=== PATIENT | male | born 1955 | race Caucasian/White ===

== ENCOUNTER 2020-09-01 11:03 | Inpatient (IN) | payer BC, MEDICAID ==
[~2020-09-01] VITALS: Ht 188 cm; Wt 97.5 kg
[2020-09-01] MEDS ORDERED: NITROGLYCERIN 0.4 MG SL TAB SL ONE (11:15)
[2020-09-01] MEDS ORDERED: ASPirin 81 mg TAB PO ONE ×2 (11:15→13:00)
[2020-09-01 11:44] LABS: Basophils # (auto) 0 10 ^3/uL (0-0.2); Basophils % (auto) 0.6 % (0.0-2.0); Eosinophils # (auto) 0.2 10 ^3/uL (0-0.8); Eosinophils % (auto) 3.2 % (0.0-7.0); Hematocrit 41.1 % (41.0-53.0); Hemoglobin 13.9 g/dL (13.5-17.5); Lymphocytes # (auto) 0.9 10 ^3/uL (0.4-5.4); Lymphocytes % (auto) 14.4 % (10.0-50.0); Mean Corpuscular Hemoglobin 31.8 pg (28.0-32.0); Mean Corpuscular Hgb Conc. 33.7 g/dL (32.0-36.0); Mean Corpuscular Volume 94.1 fL (80.0-100.0); Monocytes # (auto) 0.8 10 ^3/uL (0-1.3); Monocytes % (auto) 13.3 % (0.0-12.0); Neutrophils # (auto) 4.2 10 ^3/uL (1.6-8.6); Neutrophils % (auto) 68.5 % (37.0-80.0); Nucleated Red Blood Cells % 0.1 %; Platelet Count (auto) 239 10^3/uL (140-450); Red Blood Cells 4.37 10^6/uL (4.5-5.90); White Blood Cell 6.1 10^3/uL (4.4-10.8)
[2020-09-01 12:10] LABS: INR 0.92 (0.9-1.15); Partial Thromboplastin Time 27.2 sec (23.0-31.2)
[2020-09-01 12:28] LABS: Albumin 3.6 g/dL (3.4-5.0); Anion Gap 5 (5-15); Blood Urea Nitrogen 34 mg/dL (7-18); Calcium 9.3 mg/dL (8.5-10.1); Carbon Dioxide 25 mmol/L (21-32); Chloride 108 mmol/L (98-107); Glucose 104 mg/dL (74-106); Sodium 138 mmol/L (136-145)
[2020-09-01] MEDS ORDERED: ONDANSETRON HCL 4 MG/2 ML VIAL IV PRN (12:45)
[2020-09-01] MEDS ORDERED: MORPHINE SULF INJ 2 MG/ML SYRINGE 1ML IV PRN (12:45)
[2020-09-01] MEDS ORDERED: MORPHINE SULFATE 4 MG/ML SYR/VIAL IV PRN (12:45)
[2020-09-01] MEDS ORDERED: ZOLPIDEM TARTRATE 5 MG TAB PO PRN (12:45)
[2020-09-01] MEDS ORDERED: LORazepam 0.5 MG TAB PO PRN (12:45)
[2020-09-01] MEDS ORDERED: NITROGLYCERIN 0.4 MG SL TAB SL PRN (12:45)
[2020-09-01 12:46] LABS: Alanine Aminotransferase 34 U/L (16-61); Alkaline Phosphatase 95 U/L (45-117); Aspartate Aminotransferase 21 U/L (15-37); BUN/Creatinine Ratio 34.7; Bilirubin, Total 0.4 mg/dL (0.2-1.0); GFR African American 99 mL/min; GFR Non-African American 82 mL/min
[2020-09-01] MEDS ORDERED: METOPROLOL TARTRATE 25 MG TAB PO ONE (13:00)
[2020-09-01] MEDS ORDERED: LISINOPRIL 5 MG TAB PO ONE (13:00)
[2020-09-01] MEDS ORDERED: CLOPIDOGREL BISULFATE 75 MG TAB PO ONE (13:00)
[2020-09-01] MEDS ORDERED: ENOXAPARIN SOD 100 MG/1 ML SYRINGE SC ONE (13:00)
[2020-09-01] MEDS: SODIUM CHLORIDE 0.9% 1,000 ML IV SCH (16:36)
[2020-09-01] MEDS ORDERED: METO25TA5 PO (17:24)
[2020-09-01] MEDS ORDERED: RIVA10TA PO (17:24)
[2020-09-01] MEDS ORDERED: PRAV20TA3 PO (17:24)
[2020-09-01] MEDS ORDERED: FURO40TA4 PO (17:24)
[2020-09-01] MEDS ORDERED: DIGO0.12 PO (17:24)
[2020-09-01] MEDS ORDERED: SOTA80TA PO (17:24)
[2020-09-01] MEDS ORDERED: MAGN400T40 PO (17:27)
[2020-09-01] MEDS ORDERED: POTA1TAB64 PO (17:27)
[2020-09-01 17:40] LABS: Urine Bacteria FEW /hpf (None Seen); Urine Blood Negative /uL (Negative); Urine Mucus FEW (None Seen); Urine Specific Gravity 1.024 (1.001-1.035); Urine WBC 18 /hpf (0 - 3)
[2020-09-01] MEDS: ATORVASTATIN 20 MG TAB PO SCH (22:00)
[2020-09-01] MEDS: ENOXAPARIN SOD 100 MG/1 ML SYRINGE SC SCH (22:00)
[2020-09-01] MEDS: METOPROLOL TARTRATE 25 MG TAB PO SCH (22:01)
[2020-09-02] MEDS: SODIUM CHLORIDE 0.9% 1,000 ML IV SCH (02:05)
[2020-09-02 06:20] LABS: Hemoglobin 12.8 g/dL (13.5-17.5); Mean Corpuscular Hemoglobin 31.9 pg (28.0-32.0); Mean Corpuscular Hgb Conc. 33.7 g/dL (32.0-36.0); Mean Corpuscular Volume 94.6 fL (80.0-100.0); Platelet Count (auto) 199 10^3/uL (140-450); Red Blood Cells 4.02 10^6/uL (4.5-5.90); Red Cell Distribution Width 13.1 % (11.8-14.3); White Blood Cell 4.7 10^3/uL (4.4-10.8)
[2020-09-02 06:29] LABS: Calcium 8.7 mg/dL (8.5-10.1); Potassium 3.9 mmol/L (3.5-5.1)
[2020-09-02 07:03] LABS: Band Neutrophils % (manual) 0; Basophils % (manual) 0 (0.0-2.0); Blast Cells 0; Metamyelocytes % 0; Myelocytes % 0; Promyelocytes % 0; Reactive Lymphocytes 0
[2020-09-02 08:00] VITALS: BP 109/74
[2020-09-02 08:46] LABS: Eosinophils % (manual) 3 (0-7); Lymphocytes % (manual) 27 (10.0-50.0); Monocytes % (manual) 18 (0-12)
[2020-09-02 09:00] VITALS: BP 109/74
[2020-09-02] MEDS ORDERED: ASPirin 81 mg TAB PO SCH (10:00)
[2020-09-02] MEDS ORDERED: CLOPIDOGREL BISULFATE 75 MG TAB PO SCH (10:00)
[2020-09-02] MEDS ORDERED: HEPARIN SODIUM (PORCINE) 5000 UNITS/ML 1ML VIAL ONE (10:18)
[2020-09-02] MEDS ORDERED: ANGIOMAX 250 MG VIAL IV ONE (10:18)
[2020-09-02] MEDS ORDERED: VERAPAMIL 2.5MG/ML INJ 2ML VIAL IV ONE (10:18)
[2020-09-02] MEDS ORDERED: fentaNYL CITRATE 100 MCG/2 ML VL ONE (10:18)
[2020-09-02] MEDS ORDERED: LIDOCAINE 2%HCL (LOCAL ANESTH.) INJ 20ML MDV ONE (10:19)
[2020-09-02] MEDS ORDERED: SODIUM CHL 0.9% 0 ML ONE (10:19)
[2020-09-02] MEDS ORDERED: MIDAZOLAM HCL 1MG/1ML-2 ML VIAL ONE (10:20)
[2020-09-02] MEDS ORDERED: cefTRIAXone 1GM/50ML D5W 50 ML IV ONE (11:45)
[2020-09-02 13:00] VITALS: BP 96/63
[2020-09-02] MEDS: DOCUSATE SOD 100 MG CAP PO SCH (13:22)
[2020-09-02] MEDS: METOPROLOL TARTRATE 25 MG TAB PO SCH ×2 (13:22→21:47)
[2020-09-02] MEDS: LISINOPRIL 5 MG TAB PO SCH (13:22)
[2020-09-02] MEDS: ENOXAPARIN SOD 100 MG/1 ML SYRINGE SC SCH ×2 (13:23→21:47)
[2020-09-02] MEDS: SODIUM CHLOR 0.9% PF (SALINE LOCK) 10ML VIAL/SYR IV SCH ×2 (13:30→21:47)
[2020-09-02] MEDS: ACETAMINOPHEN 325 MG TAB PO PRN ×2 (14:39→20:34)
[2020-09-02 16:51] VITALS: BP 107/67
[2020-09-02] MEDS: ATORVASTATIN 20 MG TAB PO SCH (21:47)
[2020-09-02 22:00] VITALS: BP 112/47
[2020-09-03] MEDS: methIMAzole 5 MG TAB PO SCH ×2 (01:22→13:53)
[2020-09-03 05:00] VITALS: BP 93/59
[2020-09-03 06:19] LABS: Hematocrit 37.3 % (41.0-53.0); Hemoglobin 12.5 g/dL (13.5-17.5); Mean Corpuscular Hemoglobin 31.8 pg (28.0-32.0); Mean Corpuscular Hgb Conc. 33.5 g/dL (32.0-36.0); Platelet Count (auto) 200 10^3/uL (140-450); Red Blood Cells 3.92 10^6/uL (4.5-5.90); Red Cell Distribution Width 12.9 % (11.8-14.3); White Blood Cell 4.2 10^3/uL (4.4-10.8)
[2020-09-03] MEDS: SODIUM CHLOR 0.9% PF (SALINE LOCK) 10ML VIAL/SYR IV SCH ×3 (06:29→21:36)
[2020-09-03 06:50] LABS: Band Neutrophils % (manual) 0; Basophils % (manual) 0 (0.0-2.0); Blast Cells 0; Promyelocytes % 0; Reactive Lymphocytes 0
[2020-09-03 06:57] LABS: Potassium 4.2 mmol/L (3.5-5.1)
[2020-09-03 07:12] LABS: BUN/Creatinine Ratio 26.3; Calcium 8.9 mg/dL (8.5-10.1)
[2020-09-03 08:00] VITALS: BP 97/53
[2020-09-03] MEDS: ENOXAPARIN SOD 100 MG/1 ML SYRINGE SC SCH (08:59)
[2020-09-03 09:00] VITALS: BP 97/53
[2020-09-03] MEDS ORDERED: SODIUM CHLORIDE 0.9% 1,000 ML IV SCH (09:30)
[2020-09-03] MEDS: LISINOPRIL 5 MG TAB PO SCH (09:46)
[2020-09-03] MEDS: DOCUSATE SOD 100 MG CAP PO SCH (09:46)
[2020-09-03] MEDS: cefTRIAXone 1GM/50ML D5W 50 ML IV SCH (09:46)
[2020-09-03] MEDS: METOPROLOL TARTRATE 25 MG TAB PO SCH ×2 (09:47→23:54)
[2020-09-03] MEDS ORDERED: ENOXAPARIN SOD 100 MG/1 ML SYRINGE SC SCH (10:00)
[2020-09-03 10:26] LABS: INR 0.98 (0.9-1.15); Partial Thromboplastin Time 31.3 sec (23.0-31.2)
[2020-09-03] MEDS ORDERED: SODIUM CHLORIDE 0.9% 1,000 ML IV ONE (11:15)
[2020-09-03] MEDS ORDERED: methIMAzole 5 MG TAB PO ONE (11:15)
[2020-09-03 13:00] VITALS: BP 105/64
[2020-09-03 13:17] LABS: Eosinophils % (manual) 6 (0-7); Lymphocytes % (manual) 19 (10.0-50.0); Metamyelocytes % 1; Monocytes % (manual) 13 (0-12); Myelocytes % 1
[2020-09-03] MEDS: ACETAMINOPHEN 325 MG TAB PO PRN (13:58)
[2020-09-03 16:41] VITALS: BP 95/65
[2020-09-03 18:20] LABS: Basophils # (auto) 0 10 ^3/uL (0-0.2); Basophils % (auto) 0.5 % (0.0-2.0); Eosinophils # (auto) 0.2 10 ^3/uL (0-0.8); Eosinophils % (auto) 2.9 % (0.0-7.0); Hematocrit 37.2 % (41.0-53.0); Hemoglobin 12.5 g/dL (13.5-17.5); Lymphocytes % (auto) 18.2 % (10.0-50.0); Mean Corpuscular Hemoglobin 31.9 pg (28.0-32.0); Mean Corpuscular Hgb Conc. 33.7 g/dL (32.0-36.0); Mean Corpuscular Volume 94.7 fL (80.0-100.0); Monocytes # (auto) 0.9 10 ^3/uL (0-1.3); Monocytes % (auto) 17.2 % (0.0-12.0); Neutrophils # (auto) 3.2 10 ^3/uL (1.6-8.6); Neutrophils % (auto) 61.2 % (37.0-80.0); Platelet Count (auto) 205 10^3/uL (140-450); Red Blood Cells 3.92 10^6/uL (4.5-5.90); White Blood Cell 5.3 10^3/uL (4.4-10.8)
[2020-09-03 18:28] LABS: BUN/Creatinine Ratio 23.4; Calcium 8.5 mg/dL (8.5-10.1); Potassium 3.8 mmol/L (3.5-5.1)
[2020-09-03 22:00] VITALS: BP 106/67
[2020-09-03] MEDS: ATORVASTATIN 20 MG TAB PO SCH (22:00)
[2020-09-04] MEDS: SODIUM CHLOR 0.9% PF (SALINE LOCK) 10ML VIAL/SYR IV SCH ×3 (01:24→21:59)
[2020-09-04 05:00] VITALS: BP 100/71
[2020-09-04] MEDS: methIMAzole 5 MG TAB PO SCH ×3 (06:23→22:01)
[2020-09-04 07:09] LABS: Basophils # (auto) 0 10 ^3/uL (0-0.2); Basophils % (auto) 0.7 % (0.0-2.0); Eosinophils # (auto) 0.2 10 ^3/uL (0-0.8); Eosinophils % (auto) 3.2 % (0.0-7.0); Hematocrit 37.1 % (41.0-53.0); Hemoglobin 12.4 g/dL (13.5-17.5); Lymphocytes # (auto) 0.8 10 ^3/uL (0.4-5.4); Lymphocytes % (auto) 14.9 % (10.0-50.0); Mean Corpuscular Hemoglobin 31.5 pg (28.0-32.0); Mean Corpuscular Hgb Conc. 33.4 g/dL (32.0-36.0); Mean Corpuscular Volume 94.5 fL (80.0-100.0); Monocytes # (auto) 0.7 10 ^3/uL (0-1.3); Monocytes % (auto) 13.7 % (0.0-12.0); Neutrophils # (auto) 3.6 10 ^3/uL (1.6-8.6); Neutrophils % (auto) 67.5 % (37.0-80.0); Platelet Count (auto) 194 10^3/uL (140-450); Red Blood Cells 3.93 10^6/uL (4.5-5.90); Red Cell Distribution Width 12.9 % (11.8-14.3); White Blood Cell 5.3 10^3/uL (4.4-10.8)
[2020-09-04 07:24] LABS: BUN/Creatinine Ratio 22.9; Calcium 8.8 mg/dL (8.5-10.1); Potassium 3.8 mmol/L (3.5-5.1)
[2020-09-04] MEDS ORDERED: VANCOMYCIN HCL 1000 MG VL ONE (07:43)
[2020-09-04] MEDS ORDERED: fentaNYL CITRATE 100 MCG/2 ML VL ONE (07:43)
[2020-09-04] MEDS ORDERED: MIDAZOLAM HCL 1MG/1ML-2 ML VIAL ONE (07:43)
[2020-09-04] MEDS ORDERED: BACITRACIN INJ 50000 UNIT VIAL ONE (07:44)
[2020-09-04] MEDS ORDERED: VANCOMYCIN 1GM/250ML 250 ML IV ONE (07:44)
[2020-09-04] MEDS ORDERED: LIDOCAINE 2%HCL (LOCAL ANESTH.) INJ 20ML MDV ONE (07:44)
[2020-09-04] MEDS ORDERED: IODIXANOL 320MG/ML 100ML BTL IV ONE ×2 (07:44→09:07)
[2020-09-04 09:17] VITALS: BP 110/68
[2020-09-04] MEDS ORDERED: ENOXAPARIN SOD 100 MG/1 ML SYRINGE SC SCH ×2 (11:00→22:00)
[2020-09-04] MEDS: METOPROLOL TARTRATE 25 MG TAB PO SCH ×2 (11:54→22:01)
[2020-09-04] MEDS: DOCUSATE SOD 100 MG CAP PO SCH (11:55)
[2020-09-04] MEDS: LISINOPRIL 5 MG TAB PO SCH (11:55)
[2020-09-04] MEDS: cefTRIAXone 1GM/50ML D5W 50 ML IV SCH (11:58)
[2020-09-04] MEDS: ACETAMINOPHEN 325 MG TAB PO PRN (15:45)
[2020-09-04] MEDS ORDERED: VANCOMYCIN PER PHARMACY 0 MG IV SCH (16:15)
[2020-09-04 17:00] VITALS: BP 96/54
[2020-09-04] MEDS: VANCOMYCIN 1GM/250ML 250 ML IV SCH (17:47)
[2020-09-04] MEDS ORDERED: VANCOMYCIN 1GM/250ML 250 ML IV SCH (20:00)
[2020-09-04] MEDS ORDERED: traMADol HCL 50 MG TAB PO PRN (20:15)
[2020-09-04] MEDS: ATORVASTATIN 20 MG TAB PO SCH (21:59)
[2020-09-04] MEDS: MEROPENEM 1GM IVPB 100 ML IV SCH (21:59)
[2020-09-04 22:00] VITALS: BP 113/65
[2020-09-04] MEDS ORDERED: DOXYCYCLINE 100 MG TAB/CAP PO SCH (22:00)
[2020-09-05] MEDS: VANCOMYCIN 1GM/250ML 250 ML IV SCH (02:14)
[2020-09-05 05:00] VITALS: BP 99/60
[2020-09-05] MEDS: methIMAzole 5 MG TAB PO SCH (05:29)
[2020-09-05] MEDS: MEROPENEM 1GM IVPB 100 ML IV SCH (05:29)
[2020-09-05] MEDS: SODIUM CHLOR 0.9% PF (SALINE LOCK) 10ML VIAL/SYR IV SCH (05:29)
== END 2020-09-05 08:20 | disposition short-term general hospital (02) | DRG 176 ==
LOC: ER 11:03 → TELE 11:04 → TELE-WESTW 17:00
PROVIDERS: ADMIT Hospitalist; ATTEND Internal Medicine
PROC: B2151ZZ Fluoroscopy of Left Heart using Low Osmolar Contrast (ICD-10-PCS; principal; 2020-09-02)
PROC: B2111ZZ Fluoroscopy of Multiple Coronary Arteries using Low Osmolar Contrast (ICD-10-PCS; 2020-09-02)
PROC: 4A023N7 Measurement of Cardiac Sampling and Pressure, Left Heart, Percutaneous Approach (ICD-10-PCS; 2020-09-02)
PROC: 0JPT0PZ Removal of Cardiac Rhythm Related Device from Trunk Subcutaneous Tissue and Fascia, Open Approach (ICD-10-PCS; 2020-09-04)
PROC: 0JH609Z Insertion of Cardiac Resynchronization Defibrillator Pulse Generator into Chest Subcutaneous Tissue and Fascia, Open Approach (ICD-10-PCS; 2020-09-04)
DX: I11.0 Hypertensive heart disease with heart failure (principal); I48.19 Other persistent atrial fibrillation; I42.8 Other cardiomyopathies; I50.22 Chronic systolic (congestive) heart failure; D68.59 Other primary thrombophilia; Z20.828 Contact with and (suspected) exposure to other viral communicable diseases; E78.5 Hyperlipidemia, unspecified; E05.90 Thyrotoxicosis, unspecified without thyrotoxic crisis or storm; Z79.01 Long term (current) use of anticoagulants; Z80.3 Family history of malignant neoplasm of breast
CPT/HCPCS: 36415; 71046; 80048; 80053; 80061; 81001; 82565; 83036; 84439; 84443; 84484; 85007; 85025; 85027; 85379; 85610; 85730; 87086; 87088; 87186; 87426; 93005; 93458; 96360; 96361; 96372; 99152; 99153; G0378; J0696; J2185; J2250; Q9967

== ENCOUNTER 2020-11-17 09:02 | Inpatient (IN) | payer MEDICAID ==
[~2020-11-17] VITALS: Ht 188 cm; Wt 95.7 kg
[~2020-11-17 09:02] MED LIST: DIGO0.12 PO; FURO40TA4 PO; MAGN400T40 PO; METO25TA5 PO; POTA1TAB64 PO; PRAV20TA3 PO; RIVA10TA PO; SOTA80TA PO
[2020-11-17 09:45] LABS: Basophils # (auto) 0 10 ^3/uL (0-0.2); Basophils % (auto) 0.6 % (0.0-2.0); Eosinophils # (auto) 0.1 10 ^3/uL (0-0.8); Eosinophils % (auto) 1.6 % (0.0-7.0); Hemoglobin 14.8 g/dL (13.5-17.5); Lymphocytes # (auto) 0.9 10 ^3/uL (0.4-5.4); Lymphocytes % (auto) 11.7 % (10.0-50.0); Mean Corpuscular Hemoglobin 31.8 pg (28.0-32.0); Mean Corpuscular Hgb Conc. 33.6 g/dL (32.0-36.0); Mean Corpuscular Volume 94.4 fL (80.0-100.0); Monocytes # (auto) 0.7 10 ^3/uL (0-1.3); Monocytes % (auto) 9.1 % (0.0-12.0); Neutrophils # (auto) 5.8 10 ^3/uL (1.6-8.6); Platelet Count (auto) 279 10^3/uL (140-450); Red Blood Cells 4.66 10^6/uL (4.5-5.90); White Blood Cell 7.5 10^3/uL (4.4-10.8)
[2020-11-17 10:04] LABS: Chloride 106 mmol/L (98-107); Potassium 4.2 mmol/L (3.5-5.1); Sodium 138 mmol/L (136-145)
[2020-11-17 10:14] LABS: Alanine Aminotransferase 31 U/L (16-61); Albumin 4.1 g/dL (3.4-5.0); Alkaline Phosphatase 103 U/L (45-117); Anion Gap 5 (5-15); Aspartate Aminotransferase 17 U/L (15-37); BUN/Creatinine Ratio 27.3; Bilirubin, Total 0.4 mg/dL (0.2-1.0); Blood Urea Nitrogen 33 mg/dL (7-18); Calcium 9.4 mg/dL (8.5-10.1); Carbon Dioxide 27 mmol/L (21-32); GFR African American 78 mL/min; GFR Non-African American 64 mL/min; Glucose 105 mg/dL (74-106); Magnesium 2.5 mg/dL (1.6-2.6); Total Protein 8.4 g/dL (6.4-8.2)
[2020-11-17] MEDS ORDERED: ONDANSETRON HCL 4 MG/2 ML VIAL IV ONE ×2 (12:00→18:00)
[2020-11-17] MEDS ORDERED: MORPHINE SULF INJ 2 MG/ML SYRINGE 1ML IV ONE (12:00)
[2020-11-17] MEDS ORDERED: ASPirin 81 mg TAB PO ONE (12:00)
[2020-11-17] MEDS ORDERED: FUROSEMIDE 40 MG TAB PO ONE (12:15)
[2020-11-17] MEDS ORDERED: MAGNESIUM OXIDE 400 MG TAB PO ONE (12:15)
[2020-11-17] MEDS ORDERED: METOPROLOL TARTRATE 25 MG TAB PO ONE (12:15)
[2020-11-17] MEDS ORDERED: POTASSIUM CHLORIDE 8 MEQ TAB PO ONE (12:15)
[2020-11-17] MEDS ORDERED: SODIUM CHLORIDE 0.9% 1,000 ML IV ONE (12:15)
[2020-11-17] MEDS ORDERED: NITROGLYCERIN 0.4 MG SL TAB SL PRN (12:15)
[2020-11-17] MEDS ORDERED: MORPHINE SULF INJ 2 MG/ML SYRINGE 1ML IV PRN ×2 (12:15→13:00)
[2020-11-17 12:37] LABS: INR 1.09 (0.9-1.15); Partial Thromboplastin Time 34.6 sec (23.0-31.2)
[2020-11-17] MEDS ORDERED: HYDROcodone-ACET 5/325MG TAB PO PRN (12:45)
[2020-11-17] MEDS ORDERED: ONDANSETRON HCL 4 MG/2 ML VIAL IV PRN (12:45)
[2020-11-17] MEDS ORDERED: traMADol HCL 50 MG TAB PO PRN (13:00)
[2020-11-17] MEDS ORDERED: ACETAMINOPHEN 500 MG TAB PO PRN (13:00)
[2020-11-17] MEDS ORDERED: LACTULOSE 20Gm/30ML SOLN PO PRN (13:00)
[2020-11-17] MEDS ORDERED: PROMETHAZINE HCL 25 MG/ML 1ML IV PRN (13:00)
[2020-11-17] MEDS ORDERED: TEMAZEPAM 15 MG CAP PO PRN (13:00)
[2020-11-17] MEDS ORDERED: SODIUM CHLORIDE 0.9% 1,000 ML IV SCH (13:00)
[2020-11-17] MEDS: SODIUM CHLORIDE 0.9% 1,000 ML IV SCH (13:11)
[2020-11-17] MEDS ORDERED: HYDROcodone-ACET 5/325MG TAB PO ONE (18:00)
[2020-11-17] MEDS: SOTALOL HCL 80 MG TAB PO SCH (21:49)
[2020-11-17] MEDS ORDERED: ATORVASTATIN 20 MG TAB PO SCH (22:00)
[2020-11-17] MEDS ORDERED: PRAVASTATIN SODIUM 20 MG TAB PO SCH (22:00)
[2020-11-17] MEDS ORDERED: SOTALOL HCL 80 MG TAB PO ONE (22:00)
[2020-11-17 23:24] VITALS: BP 105/72
[2020-11-18] MEDS: SODIUM CHLORIDE 0.9% 1,000 ML IV SCH (02:35)
[2020-11-18] MEDS ORDERED: MONT4CHW9 PO (03:05)
[2020-11-18] MEDS ORDERED: PRAV20TA3 PO (03:05)
[2020-11-18] MEDS ORDERED: METO-158 PO (03:05)
[2020-11-18] MEDS ORDERED: POTA10TA51 PO (03:06)
[2020-11-18 04:20] LABS: Urine Amorphous Crystal FEW /hpf (None Seen); Urine Bacteria FEW /hpf (None Seen); Urine Blood Negative /uL (Negative); Urine Mucus FEW (None Seen); Urine Specific Gravity 1.018 (1.001-1.035); Urine WBC 21 /hpf (0 - 3); Urine WBC Clumps PRESENT /hpf (None Seen)
[2020-11-18 05:00] VITALS: BP 98/63
[2020-11-18] MEDS ORDERED: MIDAZOLAM HCL 1MG/1ML-2 ML VIAL ONE (07:43)
[2020-11-18] MEDS ORDERED: fentaNYL CITRATE 100 MCG/2 ML VL ONE (07:43)
[2020-11-18] MEDS ORDERED: LIDOCAINE 2%HCL (LOCAL ANESTH.) INJ 20ML MDV ONE (07:44)
[2020-11-18 08:00] VITALS: BP 111/71
[2020-11-18 08:10] LABS: Chloride 108 mmol/L (98-107); Potassium 4.6 mmol/L (3.5-5.1); Sodium 139 mmol/L (136-145)
[2020-11-18 08:20] LABS: Alanine Aminotransferase 24 U/L (16-61); Albumin 3.2 g/dL (3.4-5.0); Alkaline Phosphatase 84 U/L (45-117); Anion Gap 3 (5-15); Aspartate Aminotransferase 15 U/L (15-37); BUN/Creatinine Ratio 26.4; Bilirubin, Total 0.5 mg/dL (0.2-1.0); Blood Urea Nitrogen 28 mg/dL (7-18); Calcium 8.6 mg/dL (8.5-10.1); Carbon Dioxide 28 mmol/L (21-32); GFR African American 91 mL/min; GFR Non-African American 75 mL/min; Glucose 98 mg/dL (74-106); Total Protein 6.6 g/dL (6.4-8.2)
[2020-11-18] MEDS ORDERED: ceFAZolin 1GM/50ML 50 ML IV ONE (08:23)
[2020-11-18] MEDS ORDERED: SOTALOL HCL 80 MG TAB PO ONE (09:30)
[2020-11-18] MEDS ORDERED: RIVAROXABAN 15 MG TAB PO ONE (10:00)
[2020-11-18] MEDS ORDERED: DIGOXIN 0.125 MG TAB PO SCH (10:00)
[2020-11-18] MEDS: SOTALOL HCL 80 MG TAB PO SCH (10:00)
[2020-11-18] MEDS ORDERED: MAGNESIUM OXIDE 400 MG TAB PO SCH (10:00)
[2020-11-18 12:41] VITALS: BP 97/63
[2020-11-19] MEDS ORDERED: DIGOXIN 0.125 MG TAB PO ONE (10:00)
== END 2020-11-18 14:51 | disposition home or self-care (01) | DRG 175 ==
LOC: ER 09:02 → TELE 09:03 → TELE-EAST 23:20
PROVIDERS: ADMIT Specialist; ATTEND Specialist
PROC: 4A0234Z Measurement of Cardiac Electrical Activity, Percutaneous Approach (ICD-10-PCS; principal; 2020-11-18)
PROC: 02583ZZ Destruction of Conduction Mechanism, Percutaneous Approach (ICD-10-PCS; 2020-11-18)
PROC: 4B02XTZ Measurement of Cardiac Defibrillator, External Approach (ICD-10-PCS; 2020-11-18)
DX: I48.91 Unspecified atrial fibrillation (principal); I50.9 Heart failure, unspecified; I11.0 Hypertensive heart disease with heart failure; R07.9 Chest pain, unspecified; J44.9 Chronic obstructive pulmonary disease, unspecified; N40.0 Benign prostatic hyperplasia without lower urinary tract symptoms; E66.3 Overweight; E78.5 Hyperlipidemia, unspecified; Z20.822 Contact with and (suspected) exposure to COVID-19; Z80.3 Family history of malignant neoplasm of breast; Z80.42 Family history of malignant neoplasm of prostate; Z82.49 Family history of ischemic heart disease and other diseases of the circulatory system; Z87.891 Personal history of nicotine dependence; Z95.810 Presence of automatic (implantable) cardiac defibrillator
CPT/HCPCS: 36415; 71045; 80053; 80162; 81001; 83735; 83880; 84484; 85025; 85610; 85730; 86850; 86900; 86901; 87426; 93005; 99152; 99153; G0378; J0690; J2250; J2405